=== PATIENT | female | born 1960 | race Caucasian/White ===

== ENCOUNTER 2017-08-25 17:33 | Emergency (ER) | payer OTHER ==
[~2017-08-25] VITALS: Ht 165.1 cm; Wt 74.8 kg
[~2017-08-25 17:33] MED LIST: ANCEF 1GM1 GM/50 M2 IV; ASPIR 8181 MG PO; ASPIRIN PO; ASPIRIN325; ASPIRIN325 PO; ATORVASTATIN CA20 MG; ATORVASTATIN CA40 MG PO; BACTRIM 400-801 EACH PO; BACTRIM DS TAB1 EACH PO; BENTYL 20 MG TA20 M1 PO; BETAMETHASONE D45 G1 TP; CARAFATE 1 GM TA1 G1 PO; CARAFATE 1 GM TA1 GM PO; CEFUROXIME250 MG PO; CILOSTAZOL 100100 M1 PO; CIPRO250 M1 PO; CIPROFLOXACIN500 M1 PO; CIPROFLOXIN HC2.5 M1 OPHTHALMIC; COUMADIN 5 MG TA5 M1 PO; COZAAR 25 MG TA25 M2 PO; COZAAR 25 MG TA25 MG PO; DIABETA 5MG TABL5 MG PO; DUONEB 2.5-0.5 M3 ML INH; ELIQUIS5 MG PO; ENOXAPARIN60 MG/0.1 SUBQ; FENOFIBRATE134 MG PO; FENOFIBRATE160 MG PO; FEROSUL220 MG/5 M PO; FLAGYL500 MG PO; FURADANTIN25 MG/5 ML PO; GEMFIBROZIL 60600 MG PO; GLIPIZIDE 10 MG10 MG PO; GLIPIZIDE ER10 MG PO; GLUCOPHAGE PO; GLUCOPHAGE1000 MG PO; GLUCOPHAGE500 MG PO; GLUCOTROL10 MG PO; GLUCOTROL5 MG PO; GLUMETZA500; GLYBURID-METFO1 EAC3 PO; GLYBURIDE 5 MG T5 M1; GLYBURIDE 5 MG T5 M1 PO; GLYBURIDE 5 MG T5 MG PO; HYDROCODONE-AP1 EAC6 PO; HYDROXYZINE HCL25 M1 PO; HYOSCYAMINE0.375 M2 PO; IMDUR 60 MG TAB60 M1 PO; IMDUR 60 MG TAB60 MG PO; IRON; IRON325 PO; ISOSORBIDE MONO60 M1 PO; JANUVIA100 MG PO; LANTUS SUBQ; LASIX 20 MG TAB20 MG PO; LASIX 40 MG TAB40 M2 PO; LEVAQUIN 500 M500 M2; LEVAQUIN 500 M500 M2 PO; LEVAQUIN 500 M500 M8 PO; LEVOTHROID100 MC1 PO; LIPITOR 20 MG T20 M1 PO; LIPITOR 40 MG T40 M1 PO; LIPITOR40 MG PO; LISINOPRIL2.5 MG PO; LISINOPRIL5 MG PO; LOPRESSOR 50 MG50 M1 PO; LOPRESSOR25 PO; LOVASTAT20 PO; MEDROLDOSEPACK PO; METFORMIN HCL500 MG PO; MINOCIN100 MG PO; MIRALAX255 GM PO; NEURONTIN 300300 M1 PO; NEURONTIN600 MG PO; NEURONTIN800 MG PO; NITROGLYCERIN0.4 MG SUBLING; NITROQUICK0.4 MG; NITROSTAT0.4 MG PO; NORCO 5-325 TA1 EACH PO; NOVOLIN N100 UNIT/1 SQ; NOVOLOG100 UNIT/1; NOVOLOG100 UNIT/1 SUBQ; OMEPRAZOLE40 MG PO; PERCOCET 5-3251 EACH PO; PLAVIX 75 MG TA75 M1 PO; PLAVIX 75 MG TA75 MG PO; POLYETHYLENE GL17 GM PO; POTASSIUM20 PO; PRADAXA150 MG PO; PREDNISONE 10 M10 MG PO; PREDNISONE 20 M20 M1 PO; PRILOSEC40 MG PO; PRINIVIL5 MG PO; PROTONIX40 M1 PO; PROTONIX40 M2 PO; RANITIDINE 150150 M1 PO; SERTRALINE HCL100 MG PO; SERTRALINE HCL50 MG PO; SIMVASTATIN40 MG PO; SYNTHROID100 MCG PO; SYNTHROID125 MCG PO; SYNTHROID150 MCG PO; SYNTHROID300 MCG PO; TOPROL XL50 MG PO; TRAMADOL 50 MG50 MG PO; TRIAMCINOLONE A80 G2 TOP; TRINATE TABLET1 TAB PO; ULTRAM 50MG TAB50 MG PO; VENTOLIN HFA INH8 GM IH; VICODIN 5-5001 EACH PO; VITAMIN B-121000 MCG PO; ZANTAC 150MG T150 M1 PO; ZOCOR40 MG PO; ZOFRAN4 MG PO; ZOLOFT 50 MG TA50 M1 PO; [UNRECOGNIZED DRUG - OTHER] PO
[2017-08-25 18:04] LABS: BE -7.9 mmol/L (-2 to +3); HCO3 19.2 mmol/L (22.0-26.0); PO2 102.6 mmHg (75.0-100.0)
[2017-08-25 18:05] LABS: pH 7.249 (7.340-7.450)
[2017-08-25 18:39] LABS: HEMATOCRIT 44.5 % (37.0-47.0); HEMOGLOBIN 14.8 gm/dL (12.0-15.0); MCH 32.8 pg (26.0-34.0); MCHC 33.3 g/dL (28.0-37.0); MCV 98.6 fL (80.0-100.0); MPV 8.2 fl. (7.2-11.1); NUCLEATED RBCS 0 /100WBC; PLATELET COUNT* 146 thou/uL (150-400); RBC 4.51 mil/uL (4.20-5.00); RDW-CV 16.1 % (10.5-14.5); WBC 15.2 thou/uL (4.0-11.0)
[2017-08-25 18:42] LABS: APTT 21.2 Seconds (25.0-31.3); INR 1.1
[2017-08-25 18:43] LABS: CALCIUM 8.2 mg/dL (8.5-10.1); CREATININE 1.6 mg/dL (0.6-1.3); POTASSIUM 4.4 mmol/L (3.5-5.1)
[2017-08-25 18:54] LABS: ALBUMIN 3.7 g/dL (3.4-5.0); CK-MB MASS 6.3 ng/mL (<0.5-3.6); TOTAL BILIRUBIN 0.7 mg/dL (<0.1-1.0); TOTAL PROTEIN 7.6 g/dL (6.4-8.2); TROPONIN-I LEVEL 0.15 ng/mL (<0.06)
[2017-08-25 19:17] LABS: ABSOLUTE LYMPHOCYTES 1.2 thou/uL (0.8-5.3); ABSOLUTE MONOCYTES 0.5 thou/uL (0.0-1.2); ABSOLUTE NEUTROPHILS 13.5 thou/uL (1.6-8.1)
[2017-08-25 19:18] LABS: CLUMPED PLTS RARE; PLATELET ESTIMATE ADEQUATE
[2017-08-25 20:21] VITALS: BP 207/85
[2017-08-25 20:32] LABS: POC CA IONIZED 4.1 mg/dL (4.5-5.3); POC CREATININE 1.3 mg/dL (0.6-1.3); POC HEMOGLOBIN 16.3 g/dL (12.0-17.0); POC POTASSIUM 4.5 mmol/L (3.5-4.9)
--- NOTE | 2017-08-26 17:24 | EKG ---
[place] [address] ELECTROCARDIOGRAM REPORT Name: LIANG CASTAÑEDA Room: [facility]#: [id number] Admission: 08/25/17 Attend Phys: Discharge: 08/25/17 Date of : 56 Report #: [id number] THIS REPORT FOR: //name// [facility] ED Test Date: 2017-08-25 Test Time: 17:51:39 Pat Name: LIANG CASTAÑEDA Department: Room: Gender: F Manager Mortgage: PAULETTE CUEVAS : 1960 Requested By: Julissa Camarillo Order Number: [id number] MD: Marvin Swartz Measurements Intervals [place] Rate: 107 P: 71 DC: 149 QRS: 80 QRSD: 91 T: -87 QT: 379 QTc: 506 Interpretive Statements Sinus tachycardia Anterior infarct, old Nonspecific T abnormalities, inferior leads Prolonged QT interval Baseline wander in lead(s) V2 Compared to ECG 12/11/2016 23:43:28 T-wave abnormality now present Prolonged QT interval now present Myocardial infarct finding still present Electronically Signed On 08-26-2017 17:23:57 STAFF RADIOGRAPHER by Marvin Swartz [email or web address] <ELECTRONICALLY SIGNED> By: Marvin Swartz MD, [facility] 08/26/17 1723 1751 1751 Marvin Swartz MD, [facility] /EPI
== END 2017-08-25 20:22 | disposition short-term general hospital (02) ==
LOC: M.ERS 17:33
PROVIDERS: Personal Emergency Response Attendant
DX: G93.6 Cerebral edema (principal); R41.82 Altered mental status, unspecified; J44.9 Chronic obstructive pulmonary disease, unspecified; I25.10 Atherosclerotic heart disease of native coronary artery without angina pectoris; E03.9 Hypothyroidism, unspecified; E11.621 Type 2 diabetes mellitus with foot ulcer; L97.509 Non-pressure chronic ulcer of other part of unspecified foot with unspecified severity; Z91.041 Radiographic dye allergy status; Z88.5 Allergy status to narcotic agent; Z88.0 Allergy status to penicillin

== ENCOUNTER 2017-09-26 12:31 | Inpatient (IN) | payer OTHER ==
[~2017-09-26] VITALS: Ht 165.1 cm; Wt 60.3 kg
[2017-09-26 12:50] VITALS: BP 151/63
[2017-09-26 13:33] LABS: ABSOLUTE BASOPHILS 0.1 thou/uL (0.0-0.2); ABSOLUTE EOSINOPHILS 0.1 thou/uL (0.0-0.7); ABSOLUTE LYMPHOCYTES 1.5 thou/uL (0.8-5.3); ABSOLUTE MONOCYTES 0.7 thou/uL (0.0-1.2); ABSOLUTE NEUTROPHILS 6.6 thou/uL (1.6-8.1); BASOPHILS 1.2 %; EOSINOPHILS 1.5 %; HEMATOCRIT 32.2 % (37.0-47.0); HEMOGLOBIN 10.6 gm/dL (12.0-15.0); LYMPHOCYTES 16.3 %; MCH 32.5 pg (26.0-34.0); MCV 98.3 fL (80.0-100.0); MONOCYTES 7.8 %; MPV 7.1 fl. (7.2-11.1); NUCLEATED RBCS 0 /100WBC; PLATELET COUNT* 337 thou/uL (150-400); POLYS 73.2 %; RBC 3.28 mil/uL (4.20-5.00); RDW-CV 17.9 % (10.5-14.5)
[2017-09-26 13:40] LABS: CALCIUM 8.6 mg/dL (8.5-10.1); CREATININE 1.4 mg/dL (0.6-1.3); POTASSIUM 4.5 mmol/L (3.5-5.1)
[2017-09-26 13:44] LABS: ALBUMIN 3.5 g/dL (3.4-5.0); TOTAL BILIRUBIN 0.2 mg/dL (<0.1-1.0); TOTAL PROTEIN 7.1 g/dL (6.4-8.2)
[2017-09-26 21:10] VITALS: BP 168/62
[2017-09-27 04:37] VITALS: BP 176/66
--- NOTE | 2017-09-27 04:51 | NUR ---
END SHIFT: PT RESTED WELL. PAIN WELL CONTROLLED WITH PAIN MEDICATION. IVF INFUSING WITHOUT DIFFICUTLY. PEDAL PULSE DOPPLED ON RIGHT SIDE. SR ON MONITOR. CURRRENTLY ON 3L NC. SATS WILL DROP WHEN OFF OXYGEN INTO THE 80'S. CURRENTLY SATING 94% ON 3L NC. VSS. ASSESSMENT UNCHANGED. CALL LIGHT IN REACH. SAFETY PRECAUTIONS IN PLACE. WILL CONT TO MONITOR.
[2017-09-27 08:00] VITALS: BP 151/54
[2017-09-27 08:44] LABS: CALCIUM 8.7 mg/dL (8.5-10.1); CREATININE 1.2 mg/dL (0.6-1.3)
--- NOTE | 2017-09-27 09:24 | NUR ---
RECEIVED REPORT AND ASSUMED CARE AT 0730. VSS. PT DENIES ANY COMPLAINTS OF PAIN.ASSESSMENT COMPLETED CHARTED. DISCUSSED PLAN OF CARE WITH PT, VERBALIZED UNDERSTANDING. NEW IV STARTED L AC, SL. PT ON 3L NC, WITH WITH ASSIST IN ROOM. CTA RUNOFF ORDERED. BED IN LOWEST POSITION, CALL LIGHT WITHIN REACH, BED ALARM ON. WILL CONTINUE TO MONITOR FOR REMAINDER OF SHIFT
[2017-09-27 11:04] VITALS: BP 167/58
[2017-09-27 13:31] LABS: APTT 28.1 Seconds (25.0-31.3); PROTIME 9.8 Seconds (9.20-11.50)
--- NOTE | 2017-09-27 13:51 | NUR ---
CM ASSESSMENT: Pt is A&O. Resides at home with her , dtr and 2 grandkids. Independent with bathing and grooming. Pt requires assistance with ADLs, Pt that she is easily worn out when doing things around the house. Pt does not wear home o2. Pt has a walker, commode, and wc. Pt is current with [facility], CM will fax resumption orders at [place]. Pt states that she was here in the ER approx 4 weeks ago, at which time she was transferred to [facility] from there to home with . Pt's goal is to return home after this hospital stay with . Surgery following.
[2017-09-27 16:04] VITALS: BP 145/42
--- NOTE | 2017-09-27 16:29 | EKG ---
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: MIR : 1960 Requested By: Beata Case Order Number: [id number] MD: Cisco Mcconnell Measurements Intervals [place] Rate: 99 P: [place]: QRS: 30 QRSD: 84 T: 51 QT: 385 QTc: 495 Interpretive Statements sinus rhythm Probable septal infarct, recent Compared to ECG 08/25/2017 17:51:39 Sinus tachycardia no longer present T-wave abnormality no longer present Prolonged QT interval no longer present Myocardial infarct finding still present Electronically Signed On 09-27-2017 16:28:53 CDT by Cisco Mcconnell [email or web address] <ELECTRONICALLY SIGNED> By: Cisco Mcconnell MD, FAC 09/27/17 1628 1450 1450 Cisco Mcconnell MD, [facility] /EPI
--- NOTE | 2017-09-27 17:02 | 2DMMODE ---
[place] [address] 2 D/M-MODE ECHOCARDIOGRAM Name: LIANG CASTAÑEDA Room: [address] IN [facility]#: [id number] Admission: 09/26/17 Attend Phys: Jamie Rosario Discharge: Date of : 56 Date of Service: 09/27/17 1701 Report #: [id number] THIS REPORT FOR: //name// APPROVED REPORT Study performed: 09/27/2017 15:01:59 EXAM: Comprehensive 2D, Doppler, and color-flow Echocardiogram Patient Location: In-Patient Room #: [facility] BSA: 1.66 HR: 98 bpm BP: 145/42 mmHg Other Information Study Quality: Good Indications Pre-Op 2D Dimensions LVEF(%): 55.98 (>50%) IVSd: 10.75 (7-11mm) LVOT Diam: 20.71 (18-24mm) LVDd: 43.68 mm PWd: 10.26 (7-11mm) Ascending Ao: 26.24 (22-36mm) LVDs: 31.01 (25-40mm) Aortic Root: 24.29 mm Gunter's LVEF: 55.98 % Volumes Left Atrial Volume (Systole) LA ESV Index: 24.30 mL/m2 Aortic Valve AoV Peak Saran.: 1.69 m/s AO Peak Gr.: 11.38 mmHg LVOT Max P.56 mmHg AO Mean Gr.: 5.95 mmHg LVOT Mean P.67 mmHg LVOT Max V: 1.18 m/s AO V2 VTI: 29.80 cm LVOT Mean V: 0.75 m/s SALLY (VTI): 2.84 cm2 LVOT V1 VTI: 25.12 cm Mitral Valve E/A Ratio: 0.62 MV Decel. Time: 116.03 [place] [address] 2 D/M-MODE ECHOCARDIOGRAM Name: LIANG CASTAÑEDA Room: [address] IN .#: [id number] Admission: 09/26/17 Attend Phys: Jamie Rosario Discharge: Date of : 56 Date of Service: 09/27/17 1701 Report #: [id number] MV E Max Saran.: 0.84 m/s MV PHT: 33.65 ms MVA (PHT): 6.54 cm2 TDI E/Lateral E': 12.00 E/Medial E': 12.00 Medial E' Saran.: 0.07 m/s Lateral E' Saran.: 0.07 m/s Pulmonary Valve PV Peak Saran.: 1.12 m/s PV Peak Gr.: 5.02 mmHg Tricuspid Valve TR Peak Gr.: 27.62 mmHg RVSP: 32.62 mmHg Left Ventricle The left ventricle is normal size. There is normal LV segmental wall motion. Mild to moderate concentric left ventricular hypertrophy. Left ventricular systolic function is normal. LVEF is 65-70%. Grade I - abnormal relaxation pattern. Right Ventricle The right ventricle is normal size. The right ventricular systolic function is normal. Atria The left atrium size is normal. The right atrium size is normal. Aortic Valve Aortic valve is mildly calcified. No aortic regurgitation is present. There is no aortic valvular stenosis. Mitral Valve The mitral valve is normal in structure. There is no mitral valve regurgitation noted. No evidence of mitral valve stenosis. Tricuspid Valve The tricuspid valve is normal in structure. Mild tricuspid regurgitation. The RVSP is __29.3 mmHg. Pulmonic Valve The pulmonary valve is normal in structure. There is no pulmonic valvular regurgitation[place] [address] 2 D/M-MODE ECHOCARDIOGRAM Name: LIANG CASTAÑEDA Room: [address] IN .#: [id number] Admission: 09/26/17 Attend Phys: Jamie Rosario Discharge: Date of : 56 Date of Service: 09/27/17 1701 Report #: [id number] The aortic root is normal in size. IVC is normal in size and collapses with >50% inspiration Pericardium There is no pericardial effusion. <Conclusion> The left ventricle is normal size. Mild to moderate concentric left ventricular hypertrophy. Left ventricular systolic function is normal. LVEF is 65-70%. Grade I - abnormal relaxation pattern. Aortic valve is mildly calcified. Mild tricuspid regurgitation. The RVSP is __29.3 mmHg. IVC is normal in size and collapses with >50% inspiration <ELECTRONICALLY SIGNED> By: Vernon Oates MD, FACC 09/27/171700 00 00 Vernon Oates MD, FACC /INF
--- NOTE | 2017-09-27 17:54 | NUR ---
PT RESTING IN ROOM. ON 3L NC. VSS. CARDIAC MONITORIN IN PLACE. DISCUSSED PLAN OF CARE WITH PT. VERBALIZED UNDERSTANDING. PT COMPLAINS OF CONTINUED R LEG PAIN. PRN PAIN MEDICATION AMINISTERED WHICH IS REPORTED BY PT TO HELP SOME, DOES NOT WANT ANYTHING STRONGER. PT HAS STRESS TEST SCHEDULED FOR 09/28/17. WILL NEED TO BE NPO AT MIDNIGHT. AWAITING CARDIOVASCULAR CLEARANCE FOR VASCULAR PROCEEDURE. DR AGUILERA TO REVIEW CT, POSSIBLE PLAN FOR SURGERY 09/28/17. PT RECEIVING HEAPARIN DRIP, LABS SCHEDULED FOR REDRAW 09/27 2029. PT UP WITH ASSIST [facility]CS. CALL LIGHT WITHIN REACH, BED IN LOWEST POSITION, BED ALARM ON. WILL CONTINUE TO MONITOR FOR REMAINDER OF THE SHIFT.
[2017-09-27 19:50] VITALS: BP 160/61
[2017-09-28 00:01] VITALS: BP 165/58
--- NOTE | 2017-09-28 04:38 | NUR ---
END SHIFT: PT RESTED WELL. PAIN IN RIGHT LEG RELIEVED BY PAIN MEDICATION. ABLE TO WALK ON LEG WITHOUT DIFFICULTY. SR ON MONITOR. SATS DROP WHEN NOT ON O2. REQUIRES 2-3L TO STAY ABOVE 91%. HEPARIN GTT REQUIRED BOLUS AND INCREASE. TOLERATING WELL. ASSESSMENT UNCHANGED. VSS. RT SUGGESTING OVERNIGHT CAPNOGRAPHY FOR PT. WILL ADDRESS WITH ONCOMING RN FOR ORDER FROM MD. SAFETY PRECAUTIONS IN PLACE. CALL LIGHT IN REACH. PERFORMED HOURLY ROUNDING. WILL CONT TO MONITOR.
[2017-09-28 04:55] LABS: ABSOLUTE BASOPHILS 0.2 thou/uL (0.0-0.2); ABSOLUTE LYMPHOCYTES 2.3 thou/uL (0.8-5.3); ABSOLUTE MONOCYTES 0.8 thou/uL (0.0-1.2); ABSOLUTE NEUTROPHILS 9.4 thou/uL (1.6-8.1); BASOPHILS 1.4 %; EOSINOPHILS 0.1 %; HEMATOCRIT 29.5 % (37.0-47.0); HEMOGLOBIN 9.8 gm/dL (12.0-15.0); LYMPHOCYTES 17.8 %; MCH 31.9 pg (26.0-34.0); MCV 96.6 fL (80.0-100.0); MONOCYTES 6.5 %; MPV 7.1 fl. (7.2-11.1); NUCLEATED RBCS 0 /100WBC; PLATELET COUNT* 310 thou/uL (150-400); POLYS 74.2 %; RBC 3.06 mil/uL (4.20-5.00); RDW-CV 17.6 % (10.5-14.5); WBC 12.6 thou/uL (4.0-11.0)
[2017-09-28 05:02] VITALS: BP 166/65
[2017-09-28 07:25] VITALS: BP 177/63
--- NOTE | 2017-09-28 08:00 | NUR ---
RECEIVED REPORT. ASSUMED CARE OF PT AT 0730. VSS. CARDIAC MONITORING IN PLACE SR. AM ASSESSMENT AND VITALS COMPLETED CHARTED. PT ALERT AND ORIENTED. PT ON 3L PER NC WITH O2 SAT AT 98% IVF INFUSING PER ORDERS. HEPARIN GTT INFUSING. PT REPORTS PAIN TO RIGHT LE 7/10 PRN FENTANYL GIVEN. PT NPO FOR STRESS TEST AND POSSIBLE SURGERY TODAY. PT INFORMED OF PLAN OF CARE AND COMMUNICATES UNDERSTANDING. CALL LIGHT IS WITHIN REACH. WILL CONTINUE TO MONITOR FOR DURAITON OF SHFIT.
[2017-09-28 12:30] VITALS: BP 188/72
--- NOTE | 2017-09-28 14:12 | NUR ---
I HAVE REVIEWED STUDENT'S CHARTING.
[2017-09-28 15:24] VITALS: BP 169/65
--- NOTE | 2017-09-28 16:22 | EXE ---
[place] [address] STRESS ECHOCARDIOGRAM Name: LIANG CASTAÑEDA Room: [address] IN [facility]#: [id number] Admission: 09/26/17 Attend Phys: Jamie Rosario Discharge: Date of : 56 Date of Service: 09/28/17 1622 Report #: [id number] THIS REPORT FOR: //name// APPROVED REPORT Study performed: 09/28/2017 11:30:01 Exam: Dobutamine Stress Echo Indication: CAD , Pre-Operative CV evaluation Patient Location: In-Patient Stress Nurse: Selma Lin RN Room #: 214 Supervising Physician: Cisco Mcconnell MD Ht: 5 ft 5 in HR: 95 bpm BP: 179/56 mmHg Medical History Cardiac Risk Factors: Hyperlipidemia, HTN, DM Procedure The patient underwent a Pharmacological Stress Test using Dobutamine. Blood pressure, heart rate, and EKG were monitored. An Echocardiogram was performed by senior controls technician in four stages in quad fashion. At peak stress, four selected images were obtained and placed side by side with resting images for comparison. Stress Test Details Stress Test: Pharmacological Stress Test using Dobutamine. HR Resting HR: 95 bpm Max Heart Rate (APMHR): 161 bpm Max HR Achieved: 146 bpm Target HR (85% APMHR): 136 bpm % of APMHR: 90 Recovery HR: 102 bpm HR response to stress: Normal HR response to stress BP Resting BP: 179/56 mmHg Max BP: 253/48 mmHg Recovery BP: 190/46 mmHg ECG Resting ECG: Sinus Rhythm, nonspecific ST-T abnormalities Stress ECG: Sinus Rhythm, nons[place] [address] STRESS ECHOCARDIOGRAM Name: LIANG CASTAÑEDA Room: [address]#: [id number] Admission: 09/26/17 Attend Phys: Jamie Rosario Discharge: Date of : 56 Date of Service: 09/28/17 1622 Report #: [id number] ST Change: Upsloping ST depression Maximum ST Deviation: 0.5 mm Recovery ECG: Sinus Rhythm, nonspecific ST-T abnormalities Recovery ST Change: Upsloping ST depression Recovery ST Deviation: 0.5 mm Clinical Reason for Termination: Completed protocol Pre-Stress Echo The resting Echocardiogram showed normal left ventricular contractility with an estimated Ejection Fraction of about 55-60%. Post-Stress Echo The stress Echocardiogram showed normal left ventricular contractility with an estimated Ejection Fraction of about >70%. Conclusion Clinical Response: Non-ischemic Stress ECG Response: Indeterminant Stress Echo Images: Non-ischemic low risk stress echo for future cardiac events Other Information Study Quality: Good <Conclusion> low risk stress echo for future cardiac events <ELECTRONICALLY SIGNED> By: Cisco Mcconnell MD, FACC 09/28/17 162 162 21 Cisco Mcconnell MD, FACC /INF
--- NOTE | 2017-09-28 18:10 | NUR ---
VSS. CARDIAC MONITORING IN PLACE WITH NO CHANGES THIS SHIFT. PT TITRATED TO RA DURING THIS SHIFT. IVF INFUSING PER ORDERS. HEPARIN GTT INFUSING. PT'S PAIN WELL MANAGED THIS SHIFT. PT COMPLETED STRESS TEST. PT IS UP WITH STAND BY ASSISTANCE TO BATHROOM. PT INFORMED OF PLAN OF CARE. CALL LIGHT IS WITHIN REACH. WILL CONTINUE TO MOTNIOR FOR DURATION OF SHIFT.
[2017-09-28 20:00] VITALS: BP 207/83
[2017-09-29] VITALS (8 sets, daily range): BP systolic 152–206; BP diastolic 48–98
--- NOTE | 2017-09-29 02:43 | NUR ---
RECIEVED REPORT AND ASSUMED CARE OF PATIENT AT 1930. PRINCIPAL SYSTEM SOFTWARE ENGINEER IN PLACE TRACING SR. ASSESSMENT AND VITALS COMPLETED CHARTED, BLOOD PRESSURE ELEVATED- 207/83. PHYSICIAN NOTIFIED AND ORDERS OBTAINED FOR PRN HYDRALAZINE. HYDRALAZINE ADMINISTERED WITH IMPROVEMENT, BP RECHECK WAS 162/66. PATIENT HAS C/O PAIN IN RIGHT LEG, PAIN MEDICATION ADMINISTERED WITH PARTIAL RELIEF. PATIENT ENCOURAGED TO REPOSITION FOR COMFORT. GOAL IS EFFECTIVE PAIN MANAGEMENT AND CONTINUED BLOOD PRESSURE CONTROL. CALL LIGHT WITHIN REACH
--- NOTE | 2017-09-29 04:38 | NUR ---
PATIENT PARTIALLY PROGRESSING TOWARDS GOALS: PAIN HAS BEEN PARTIALLY MANAGED WITH PRN MEDICATION AND REPOSITION/RELAXATION TECHNIQUES. PATIENT REMAINS ON HEPARIN GTT WITH THERAPEUTIC PTT. HOURLY ROUNDING OBSERVED. CALL LIGHT WITHIN REACH.
[2017-09-29 05:33] LABS: HEMATOCRIT 30.7 % (37.0-47.0); HEMOGLOBIN 10.2 gm/dL (12.0-15.0); MCH 32.4 pg (26.0-34.0); MCHC 33.2 g/dL (28.0-37.0); MCV 97.8 fL (80.0-100.0); MPV 7.4 fl. (7.2-11.1); RBC 3.13 mil/uL (4.20-5.00); RDW-CV 17.4 % (10.5-14.5); WBC 10.2 thou/uL (4.0-11.0)
--- NOTE | 2017-09-29 10:24 | NUR ---
ASSUMED CARE OF PT THIS AM AROUND 0715- SENIOR RESERVOIR ENGINEER IN PLACE ORDERED, TRAICNG ST THIS AM- UPON ASSESSMENT PT NOTED TO BE RESTING IN BED, EYES CLOSED BUT EASILY ARROUSABLE- PT A&O X4- CONTINENT OF BOWEL AND BLADDER- ASSIST X1 WITH TRANSFERS NOTED- LCTA, RESP EVEN AND UN-LABORED- VSS, O2 SAT 96% ON RA- IV NOTED TO RIGHT WRIST WITH IVF AND HEPARIN INFUSING PRESCIBED-LEFT AC IV NOTED INTACT AND SL, IV ABT GIVEN PRESCIBED WITH NO ADVERSE REACTIONS TO NOTE- BS ACHS PRESCIBED- LEA, MASONRY CONTRACTOR ADMINISTRATOR WITH CARIDIOLOGY STATES THAT PT WILL BE ABLE TO BE CLEARED FOR SUGERY IN FUTURE, WITH RISKS- EMMANUEL WITH CARDIOLOGY CONTACTED TO CLEARIFY DIET IN R/T NO STATUS THIS AM, AND VOICES THAT PT IS ABLE TO EAT- JALEESA BENITEZ STATES THAT MAY NEED TO SCHEDULE OP AT ANOTHER HOSPITAL DEPENDING ON FACTORS- PT C/O PAIN X1 THIS AM TO BLE, PRN FENT GIVEN AT 0943- PT REPORTS MEDICATION TO DONAVAN EFFECTIVE-[facility] MA[facility] CAMPUST X-RAY COMPLETED THIS AM ORDERED FOR FOLLOW UP TO PNEUMONIA- RESULTS SHOW IMPROVEMENT AND INILTRATE, NO NEW PROCESS NOTED- ABDOMEN SOFT/ROUND/NON-TENER, BS X4 QUADS ACTIVE- LAST BM REPORTED X2 DAYS AGO- BS PRESCIBED WITH PO AND SSI PRESCIBED- CALL LIGHT AND PERSONAL BELONGINGS WITH IN REACH- HOURLY ROUNDS IN PLACE R/T SAFETY/NEEDS- ALL NEEDS MET AT THIS TIME-WCTM
--- NOTE | 2017-09-29 15:03 | NUR ---
Plan dc to home tomorrow with HH, CM will fax resumption orders to [facility]
--- NOTE | 2017-09-29 18:17 | NUR ---
PT CURRENTLY RESTING IN BED, WATCHING TV- CLINICAL RESEARCH TECHNICIAN IN PLACE ORDERED, TRACING ST- IV TO RIGHT WRIST INTACT, IVF ALONG WITH HEPARIN INFUSING PRESCIBED- APPT @ 1230 NOTED AT 53.2 WITH NO CHANGE NEEDED IN DOSEING- NEXT CHECK SCHEDULED AT 1830- FENT PRN THIS SHIFT PER PT REQUEST, PT REPORTS MEDICATION TO BE EFFECTIVE- PRN ZOFRAN GIVEN X1 THIS SHIFT AT 1730, FOR EMESIS X1- PT REPORTS MEDICATIONS TO BE EFFECTIVE- BP AT 1116 NOTED AT 206/79, PRN HYDRALAZINE GIVEN AT 1121, RECHECK AT 1225 NOTED TO DONAVAN IMPROVED AT 142/60- BS PRESCRIBED, SSI PRESCIBED, FAIR PO INTAKE NOTED WITH MEALS- D/C PENDING VASCULAR INPUT FOR PLANS FOR FOLLOW UP- CALL LIGHT AND PERSONAL BELONGINGS WITH IN REACH- ALL NEEDS MET AT THIS TIME-WC
[2017-09-30] VITALS (7 sets, daily range): BP systolic 149–201; BP diastolic 56–98
--- NOTE | 2017-09-30 03:51 | NUR ---
PATIENT PARTIALLY PROGRESSING TOWARDS GOALS: PAIN PARTIALLY MANAGED WITH PRN MEDICATION, HOWEVER, PAIN HAS NOT BEEN BELOW A "5" ON PAIN SCALE. PATIENT ENCOURAGED TO REPOSITION FOR COMFORT. PATIENT REMAINS ON HEPARIN GTT AT 12.69 WITH THERAPEUTIC PTT. HOURLY ROUNDING OBSERVED. CALL LIGHT WITHIN REACH
[2017-09-30 06:15] LABS: HEMATOCRIT 30.2 % (37.0-47.0); HEMOGLOBIN 9.7 gm/dL (12.0-15.0); MCH 31.6 pg (26.0-34.0); MCHC 32.1 g/dL (28.0-37.0); MCV 98.3 fL (80.0-100.0); MPV 7.4 fl. (7.2-11.1); RBC 3.07 mil/uL (4.20-5.00); RDW-CV 17.6 % (10.5-14.5); WBC 7.6 thou/uL (4.0-11.0)
--- NOTE | 2017-09-30 07:45 | NUR ---
ASSUMED CARE OF PT ASSESSED AND DOCUMENTED. PT ON CARDIAC MONITER TRACING SR HR 86. PT IS A&O WITH C/O R LEG PAIN. PT REC PAIN MED PRIOR TO SHIFT CHANGE. BED IS IN LOW POSTION CALL LIGHT IS IN TREACH. WM.
--- NOTE | 2017-09-30 13:52 | NUR ---
Pt to dc home today, resumption orders faxed to [facility]. Family to provide dc transportation.
[2017-09-30] MEDS ORDERED: PLAVIX 75 MG TA75 M1 PO (16:24)
[2017-09-30] MEDS ORDERED: HYDRALAZINE 10M10 MG PO (16:36)
[2017-09-30] MEDS ORDERED: LEVAQUIN 500 M500 M2 PO (16:56)
[2017-09-30] MEDS ORDERED: DURAGESIC1 EACH PO (17:01)
--- NOTE | 2017-09-30 17:54 | NUR ---
PT D/C'D TO HOME. ALL CONSULTS OK WITH D/C. EDUCATION GIVEN RE FOLLOW-UPS, MEDICATIONS, AND DRS ORDERS. SCRIPTS GIVEN. D/C'D IV AND CARDIAC MONITER. ALL BELONGINGS PACKED UP ANDLEFT WITH PT ACCOMPANIED BY STAFF AND FAMILY.
== END 2017-09-30 18:00 | disposition home health service (06) | DRG 177 ==
LOC: M.ERS 12:31 → M.TBA-ER 16:35 → M.2W 16:35
PROVIDERS: Emergency Medicine Emergency Medical Services; Physician Assistant; Registered Nurse; ADMIT Internal Medicine
DX: J15.6 Pneumonia due to other Gram-negative bacteria (principal); J96.01 Acute respiratory failure with hypoxia; I74.3 Embolism and thrombosis of arteries of the lower extremities; E11.51 Type 2 diabetes mellitus with diabetic peripheral angiopathy without gangrene; N18.9 Chronic kidney disease, unspecified; E03.9 Hypothyroidism, unspecified; E11.22 Type 2 diabetes mellitus with diabetic chronic kidney disease; E78.5 Hyperlipidemia, unspecified; I65.21 Occlusion and stenosis of right carotid artery; J43.9 Emphysema, unspecified; I25.10 Atherosclerotic heart disease of native coronary artery without angina pectoris; D64.9 Anemia, unspecified; I25.2 Old myocardial infarction; Z87.891 Personal history of nicotine dependence; Z88.0 Allergy status to penicillin; Z88.8 Allergy status to other drugs, medicaments and biological substances; Z91.041 Radiographic dye allergy status; Z79.899 Other long term (current) drug therapy; Z79.82 Long term (current) use of aspirin; Z86.718 Personal history of other venous thrombosis and embolism

== ENCOUNTER 2018-03-20 10:04 | Inpatient (IN) | payer OTHER ==
[~2018-03-20] VITALS: Ht 165.1 cm; Wt 58.1 kg
[~2018-03-20 10:04] MED LIST changes: +DURAGESIC1 EACH PO; +HYDRALAZINE 10M10 MG PO
[2018-03-20 10:05] VITALS: BP 180/31
[2018-03-20 10:40] LABS: ABSOLUTE BASOPHILS 0.1 thou/uL (0.0-0.2); ABSOLUTE EOSINOPHILS 0.1 thou/uL (0.0-0.7); ABSOLUTE LYMPHOCYTES 1.4 thou/uL (0.8-5.3); ABSOLUTE MONOCYTES 0.5 thou/uL (0.0-1.2); ABSOLUTE NEUTROPHILS 4.1 thou/uL (1.6-8.1); BASOPHILS 1.8 %; HEMOGLOBIN 11.4 gm/dL (12.0-15.0); LYMPHOCYTES 23.4 %; MCH 32.5 pg (26.0-34.0); MCHC 32.7 g/dL (28.0-37.0); MCV 99.5 fL (80.0-100.0); MONOCYTES 7.5 %; MPV 7.8 fl. (7.2-11.1); NUCLEATED RBCS 0 /100WBC; PLATELET COUNT* 204 thou/uL (150-400); POLYS 66.3 %; RBC 3.52 mil/uL (4.20-5.00); RDW-CV 21.3 % (10.5-14.5); WBC 6.1 thou/uL (4.0-11.0)
[2018-03-20 10:58] LABS: ANION GAP 6 mmol/L (7-16); BUN 27 mg/dL (7-18); CALCIUM 8.6 mg/dL (8.5-10.1); CHLORIDE 98 mmol/L (98-107); CO2 29 mmol/L (21-32); CREATININE 1.9 mg/dL (0.6-1.3); GLUCOSE 248 mg/dL (70-99); POTASSIUM 4.4 mmol/L (3.5-5.1); SODIUM 133 mmol/L (136-145)
[2018-03-20 11:07] LABS: ANISOCYTOSIS 2+
[2018-03-20 11:09] LABS: ALBUMIN 3.3 g/dL (3.4-5.0); ALKALINE PHOSPHATASE 70 U/L (46-116); SGOT 16 U/L (15-37); SGPT 15 U/L (30-65); TOTAL BILIRUBIN 0.2 mg/dL (<0.1-1.0); TOTAL PROTEIN 7.2 g/dL (6.4-8.2); TROPONIN-I LEVEL <0.06 ng/mL (<0.06)
[2018-03-20 12:31] LABS: URINE BILIRUBIN NEGATIVE (Negative); URINE BLOOD TRACE (Negative); URINE CLARITY CLEAR; URINE COLOR YELLOW; URINE GLUCOSE-RANDOM TRACE (Negative); URINE KETONES NEGATIVE (Negative); URINE PROTEIN NEGATIVE (Negative); URINE UROBILINOGEN 0.2 E.U./dl (0.2-1.0)
[2018-03-20 12:32] LABS: URINE LEUKOCYTES-REFLEX 2+ (Negative); URINE NITRITE-REFLEX POSITIVE (Negative)
[2018-03-20 12:38] LABS: BACTERIA-REFLEX >30 Many /HPF (None Seen); CASTS None Seen /LPF (None Seen); CRYSTALS None Seen /LPF (None Seen); MUCUS 0-3 Light strn/LPF (None Seen); SQUAMOUS 0-3 Few /LPF (0-3); URINE RBC 3-10 Few /HPF (0-2); URINE WBC-REFLEX 6-15 Few /HPF (0-5)
--- NOTE | 2018-03-20 14:37 | EKG ---
[place] [address] ELECTROCARDIOGRAM REPORT Name: LIANG CASTAÑEDA Room: [place] [address] ADM IN [facility]#: [id number] Admission: 03/20/18 Attend Phys: Betty Tijerina MD Discharge: Date of : 56 Report #: [id number] THIS REPORT FOR: //name// [facility] ED Test Date: 2018-03-20 Test Time: 10:33:51 Pat Name: LIANG CASTAÑEDA Department: Room: [facility] Gender: F Willower: ANDREW : 1960 Requested By: Tawana Kern Order Number: [id number] MD: Cisco Mcconnell Measurements Intervals [place] Rate: 74 P: 62 [place]: 167 QRS: 2 QRSD: 93 T: -38 QT: 403 QTc: 448 Interpretive Statements Sinus rhythm Probable left atrial enlargement Anterior infarct, old Compared to ECG 09/27/2017 14:50:45 No significant changes Electronically Signed On 03-20-2018 14:37:26 CDT by Cisco Mcconnell [email or web address] <ELECTRONICALLY SIGNED> By: Cisco Mcconnell MD, [facility] 03/20/18 1437 1033 1033 Cisco Mcconnell MD, [facility] /EPI
[2018-03-20 15:02] VITALS: BP 169/68
[2018-03-20 15:05] VITALS: BP 176/65
[2018-03-20 16:42] VITALS: BP 143/62
[2018-03-20 18:15] VITALS: BP 165/66
[2018-03-20 20:00] VITALS: BP 135/50
[2018-03-21] VITALS (7 sets, daily range): BP systolic 119–172; BP diastolic 46–79
[2018-03-21 05:46] LABS: HEMATOCRIT 31.8 % (37.0-47.0); HEMOGLOBIN 10.5 gm/dL (12.0-15.0); MCH 32.8 pg (26.0-34.0); MCHC 32.9 g/dL (28.0-37.0); MCV 99.8 fL (80.0-100.0); RBC 3.19 mil/uL (4.20-5.00); RDW-CV 20.6 % (10.5-14.5); WBC 6.3 thou/uL (4.0-11.0)
[2018-03-21 05:58] LABS: CALCIUM 7.3 mg/dL (8.5-10.1); CREATININE 1.6 mg/dL (0.6-1.3); MAGNESIUM 1.5 mg/dL (1.8-2.4)
[2018-03-22 04:00] VITALS: BP 155/76
[2018-03-22 08:00] VITALS: BP 149/71
[2018-03-22 12:00] VITALS: BP 199/78
[2018-03-22 21:10] VITALS: BP 175/68
[2018-03-23 07:30] VITALS: BP 181/80
[2018-03-23] MEDS ORDERED: CEFDINIR300 MG PO (13:21)
[2018-03-23] MEDS ORDERED: PROMETHAZINE12.5 M1 PO (13:22)
== END 2018-03-23 16:40 | disposition home health service (06) | DRG 682 ==
LOC: M.ERS 10:04 → M.TBA-ER 13:50 → M.2W 13:50 → M.ORTHSURG 03-22 13:24
PROVIDERS: Physician Assistant Surgical; ADMIT Internal Medicine
DX: N17.9 Acute kidney failure, unspecified (principal); G92 Toxic encephalopathy; N39.0 Urinary tract infection, site not specified; J44.9 Chronic obstructive pulmonary disease, unspecified; E03.9 Hypothyroidism, unspecified; I25.10 Atherosclerotic heart disease of native coronary artery without angina pectoris; F17.290 Nicotine dependence, other tobacco product, uncomplicated; E11.22 Type 2 diabetes mellitus with diabetic chronic kidney disease; S80.00XA Contusion of unspecified knee, initial encounter; D64.9 Anemia, unspecified; N18.3 Chronic kidney disease, stage 3 (moderate); E11.51 Type 2 diabetes mellitus with diabetic peripheral angiopathy without gangrene; I25.2 Old myocardial infarction; Z86.718 Personal history of other venous thrombosis and embolism; Z95.820 Peripheral vascular angioplasty status with implants and grafts; Z88.0 Allergy status to penicillin; Z88.6 Allergy status to analgesic agent; Z91.041 Radiographic dye allergy status; X58.XXXA Exposure to other specified factors, initial encounter; Y93.89 Activity, other specified; Y92.89 Other specified places as the place of occurrence of the external cause; Y99.8 Other external cause status

== ENCOUNTER 2018-03-29 11:22 | Inpatient (IN) | payer OTHER ==
[~2018-03-29] VITALS: Ht 165.1 cm; Wt 60.3 kg
[~2018-03-29 11:22] MED LIST changes: +CEFDINIR300 MG PO; +PROMETHAZINE12.5 M1 PO
[2018-03-29 11:24] VITALS: BP 169/50
[2018-03-29 11:42] LABS: ABSOLUTE BASOPHILS 0.1 thou/uL (0.0-0.2); ABSOLUTE EOSINOPHILS 0.2 thou/uL (0.0-0.7); ABSOLUTE LYMPHOCYTES 1.5 thou/uL (0.8-5.3); ABSOLUTE MONOCYTES 0.3 thou/uL (0.0-1.2); ABSOLUTE NEUTROPHILS 3.3 thou/uL (1.6-8.1); BASOPHILS 1.6 %; EOSINOPHILS 2.9 %; HEMATOCRIT 33.2 % (37.0-47.0); HEMOGLOBIN 10.9 gm/dL (12.0-15.0); MCH 33.1 pg (26.0-34.0); MCHC 32.8 g/dL (28.0-37.0); MCV 100.9 fL (80.0-100.0); MONOCYTES 6.1 %; MPV 8.3 fl. (7.2-11.1); NUCLEATED RBCS 0 /100WBC; PLATELET COUNT* 272 thou/uL (150-400); POLYS 61.4 %; RDW-CV 19.4 % (10.5-14.5); WBC 5.4 thou/uL (4.0-11.0)
[2018-03-29 11:54] LABS: ANION GAP 0 mmol/L (7-16); BUN 20 mg/dL (7-18); CALCIUM 8.6 mg/dL (8.5-10.1); CHLORIDE 100 mmol/L (98-107); CO2 30 mmol/L (21-32); CREATININE 1.8 mg/dL (0.6-1.3); GLUCOSE 141 mg/dL (70-99); POTASSIUM 5.4 mmol/L (3.5-5.1); SODIUM 130 mmol/L (136-145)
[2018-03-29 11:58] LABS: BE -0.6 mmol/L (-2 to +3); HCO3 25.5 mmol/L (22.0-26.0); PCO2 48.4 mmHg (35.0-45.0); PO2 63.8 mmHg (75.0-100.0)
[2018-03-29 12:05] LABS: ALBUMIN 3.2 g/dL (3.4-5.0); ALKALINE PHOSPHATASE 63 U/L (46-116); NT-PRO BRAIN NAT PEPTIDE 793 pg/mL (<300); SGOT 18 U/L (15-37); SGPT 12 U/L (30-65); TOTAL BILIRUBIN 0.2 mg/dL (<0.1-1.0); TOTAL PROTEIN 6.9 g/dL (6.4-8.2); TROPONIN-I LEVEL <0.06 ng/mL (<0.06)
[2018-03-29 16:00] VITALS: BP 113/50
[2018-03-29 16:15] VITALS: BP 150/54
--- NOTE | 2018-03-29 17:28 | EKG ---
[place] [address] ELECTROCARDIOGRAM REPORT Name: LIANG CASTAÑEDA Room: [address] ADM IN .R.#: [id number] Admission: 03/29/18 Attend Phys: Jaimie Moore Discharge: Date of : 56 Report #: [id number] THIS REPORT FOR: //name// [facility] ED Test Date: 2018-03-29 Test Time: 11:32:47 Pat Name: LIANG CASTAÑEDA Department: Room: [facility] Gender: F Component Engineer: Denise SNOW : 1960 Requested By: Alessandro Palomares Order Number: [id number] MD: Marvin Swartz Measurements Intervals [place] Rate: 74 P: 50 [place]: 167 QRS: 2 QRSD: 92 T: 55 QT: 396 QTc: 440 Interpretive Statements Sinus rhythm Probable left atrial enlargement Borderline low voltage, extremity leads Consider anterior infarct Compared to ECG 03/20/2018 10:33:51 No significant changes Electronically Signed On 03-29-2018 17:28:29 CDT by Marvin Swartz [email or web address] <ELECTRONICALLY SIGNED> By: Marvin Swartz MD, FAC 03/29/18 1728 1132 1132 Marvin Swartz MD, [facility] /EPI
[2018-03-29 20:00] VITALS: BP 147/45
[2018-03-30] VITALS: BP 171/56
[2018-03-30 04:00] VITALS: BP 148/61
[2018-03-30 07:45] VITALS: BP 141/55
[2018-03-30 11:37] VITALS: BP 117/42
[2018-03-30 15:30] VITALS: BP 131/48
[2018-03-30 19:20] VITALS: BP 161/60
[2018-03-31] VITALS: BP 138/52
[2018-03-31 04:00] VITALS: BP 177/67
[2018-03-31 10:08] LABS: ALBUMIN 3.2 g/dL (3.4-5.0); CALCIUM 8.5 mg/dL (8.5-10.1); CREATININE 1.8 mg/dL (0.6-1.3); POTASSIUM 4.2 mmol/L (3.5-5.1); TOTAL BILIRUBIN 0.3 mg/dL (<0.1-1.0); TOTAL PROTEIN 7.3 g/dL (6.4-8.2)
[2018-03-31 12:05] VITALS: BP 125/40
[2018-03-31 12:29] VITALS: BP 125/40
[2018-03-31] MEDS ORDERED: LEVAQUIN 500 M500 M2 PO (13:09)
[2018-03-31] MEDS ORDERED: PREDNISONE 10 M10 MG PO (13:09)
== END 2018-03-31 15:00 | disposition home health service (06) | DRG 189 ==
LOC: M.ERS 11:22 → M.TBA-ER 12:49 → M.2W 12:49
PROVIDERS: Emergency Medicine Emergency Medical Services; ADMIT Internal Medicine
DX: J96.20 Acute and chronic respiratory failure, unspecified whether with hypoxia or hypercapnia (principal); J44.1 Chronic obstructive pulmonary disease with (acute) exacerbation; J98.11 Atelectasis; I13.0 Hypertensive heart and chronic kidney disease with heart failure and stage 1 through stage 4 chronic kidney disease, or unspecified chronic kidney disease; I50.9 Heart failure, unspecified; E03.9 Hypothyroidism, unspecified; I25.10 Atherosclerotic heart disease of native coronary artery without angina pectoris; E11.51 Type 2 diabetes mellitus with diabetic peripheral angiopathy without gangrene; F17.210 Nicotine dependence, cigarettes, uncomplicated; E11.22 Type 2 diabetes mellitus with diabetic chronic kidney disease; N18.9 Chronic kidney disease, unspecified; Z86.718 Personal history of other venous thrombosis and embolism; I25.2 Old myocardial infarction; Z95.820 Peripheral vascular angioplasty status with implants and grafts; Z88.0 Allergy status to penicillin; Z88.6 Allergy status to analgesic agent; Z91.041 Radiographic dye allergy status; Z82.49 Family history of ischemic heart disease and other diseases of the circulatory system; Z83.3 Family history of diabetes mellitus; Z79.82 Long term (current) use of aspirin; Z79.899 Other long term (current) drug therapy; Z23 Encounter for immunization; E78.5 Hyperlipidemia, unspecified

== ENCOUNTER → 2018-04-25 | Outpatient (CLI) | payer OTHER | LOC: M.RAD 13:44 | DX: Z12.31 Encounter for screening mammogram for malignant neoplasm of breast (principal) ==

== ENCOUNTER 2020-06-21 20:29 | Emergency (ER) | payer OTHER ==
[~2020-06-21] VITALS: Ht 165.1 cm; Wt 61.2 kg
[2020-06-21] MEDS ORDERED: NORCO 5-325 TA1 EAC2 PO (22:41)
[2020-06-21 23:07] VITALS: BP 151/45
== END 2020-06-21 23:08 | disposition home or self-care (01) ==
LOC: M.ERS 20:29
DX: S42.215A Unspecified nondisplaced fracture of surgical neck of left humerus, initial encounter for closed fracture (principal); M25.552 Pain in left hip; M25.522 Pain in left elbow; J44.9 Chronic obstructive pulmonary disease, unspecified; E11.9 Type 2 diabetes mellitus without complications; E03.9 Hypothyroidism, unspecified; I25.10 Atherosclerotic heart disease of native coronary artery without angina pectoris; E11.621 Type 2 diabetes mellitus with foot ulcer; Z86.718 Personal history of other venous thrombosis and embolism; W01.0XXA Fall on same level from slipping, tripping and stumbling without subsequent striking against object, initial encounter; Y93.89 Activity, other specified; Y92.89 Other specified places as the place of occurrence of the external cause; Y99.8 Other external cause status

== ENCOUNTER 2021-08-01 03:09 | Inpatient (IN) | payer MEDICARE ==
[~2021-08-01] VITALS: Ht 157.5 cm; Wt 58.5 kg
--- NOTE | ~2021-08-01 | EMS ---
[facility] [address] [place] [address] EMS Patient Care Report Name: LIANG CASTAÑEDA Room: [address] ADM IN M.R.#: [id number] Admission: 08/01/21 Attend Phys: Sara Baker Discharge: Date of : 56 Report #: [id number] THIS REPORT FOR: //name// Report Transmitted: 08/05/2021 13:40 EMS Care Summary [facility] Incident [phone] @ 08/01/2021 02:07 Incident Location [address] [place] [address] Patient LIANG CASTAÑEDA Female, 61 Years 1960 Patient Address [address] [place] [address] Patient History Pacemaker/AICD, Patient Allergies No known allergies, Patient Medications Metformin, Chief Complaint Unresponsive Disposition Transported No Lights/[place] Dispatch Reason Altered Mental Status Transported To [facility] Narrative Medic 1 was dispatched for an unresponsive green party, family believes it could possibly be diabetic issues. Medic 1 arrived on scene and made pt. contact. Pt. is a 61 y/o female, lying supine on the couch, AOx2 with a GCS of 12. C/C of AMS. Family advised that the pt. had fallen off the couch and was [address] [place] [address] EMS Patient Care Report Name: LIANG CASTAÑEDA Room: [address] IN ..#: [id number] Admission: 08/01/21 Attend Phys: Sara Baker Discharge: Date of : 56 Report #: [id number] unresponsive and believed that her BGL was low. Primary assessment was obtained, pt. opened her eyes for the crew with verbal and then closed them. V/S obtained. Pt.'s skin was cool and clammy, auscultation of the lungs revealed CEBBS in upper and lower lobes. BGL was obtained, 364 mg/dl. 4 Lead ECG was obtained, Sinus tach at a rate of 111 mg/dl. Prior to transferring pt. to the cot, pills were found on the floor next to where the pt. was laying. Pt. presents with agitation and opens her eyes with verbal stimuli. Pills were a over the counter sleeping aid. Family was uncertain if the pt. had ingested any pills. Pt. was transferred to the cot and secured. Pt. was loaded into the ambulance and secured. V/S obtained and monitored throughout the transport. Pupils were examined, constricted bilaterally at 2mm and sluggish to respond. A successful IV line was established, 20GA to right forearm with a flash. A 1000ml bag of saline and a 10gtts administration line was flushed and administered through established IV cannulation. IV flows with no obstructions and is secured, flowing at a TKO rate. Pt. received 200ml throughout the transport. In route, pt. remained agitated and GCS improved. Pt. was able to acknowledge that she had ingested sleeping pills, but was unable to confirm how many were ingested. Receiving facility was contacted and report was given. As report was being given, the pt. presented with a generalized tonic-clonic seizure. Pt. was administered 2mg of Midazolam IVP with NS flush for the seizure activity. Pt. was administered 02 via NRB at 15 lpm. Arrived at receiving facility, pt. was assigned to Bed #1 and report was given to receiving physician and staff. Signatures obtained by receiving nurse for pt. authorization and receiving of pt. Medic 1 returned to service. Initial Vitals @03:01P: 101,R: 16,BP: 210/100,GCS: 8,SpO2: 95,Revised Trauma: 10,SC Suspected: false @02:17P: 111,R: 16,BP: 180/90,GCS: 12,Glucose: 364,SpO2: 95,Revised Trauma: 11, @02:40P: 125,R: 20,BP: 237/110,GCS: 13,SpO2: 95,Revised Trauma: 12,SC Suspected: false @02:51P: 114,R: 20,BP: 217/107,GCS: 14,SpO2: 95,Revised Trauma: 12,SC Suspected: false Impression Altered Mental Status Procedures @02:27 IV Therapy - Normal Saline (.9% NaCl) 200cc (20 ga) Site: Forearm-Right Response: UnchangedSucceeded @03:03 Midazolam - 2 Milligrams (mg) - Intravenous (IV) Response: Unchanged @03:04 Oxygen FlowRate: 15 Device: Non Re-breather Mask (NRB) Response: [place] [address] EMS Patient Care Report Name: LIANG CASTAÑEDA Room: [address] IN M.R.#: [id number] Admission: 08/01/21 Attend Phys: Sara Baker Discharge: Date of : 56 Report #: [id number] Timeline 02:06,Call Received 02:07,Dispatched 02:12,En Route 02:14,On Scene 02:14,At Patient 02:17,BP: 180/90 M,PULSE: 111,RR: 16 R,SPO2: 95 Ox,ETCO2: ,B,PAIN: ,GCS: 12, 02:27,IV Therapy - Normal Saline (.9% NaCl) 200cc 20 ga Site: Forearm-Right,Response: UnchangedSucceeded, 02:40,BP: 237/110 M,PULSE: 125,RR: 20 R,SPO2: 95 Ox,ETCO2: ,BG: ,PAIN: ,GCS: 13, 02:44,Depart Scene 02:51,BP: 217/107 M,PULSE: 114,RR: 20 R,SPO2: 95 Ox,ETCO2: ,BG: ,PAIN: ,GCS: 14, 03:01,BP: 210/100 M,PULSE: 101,RR: 16 R,SPO2: 95 Ox,ETCO2: ,BG: ,PAIN: ,GCS: 8, 03:03,Midazolam - 2 Milligrams (mg) - Intravenous (IV),Response: Unchanged 03:04,At Destination 03:04,Oxygen FlowRate: 15 Device: Non Re-breather Mask (NRB) Response: UnchangedSucceeded, 03:47,Call Closed Disclaimer v1.1 Copyright 2021 [employer] This EMS Care Summary contains data elements from the applicable legal record (which may be displayed differently). It is designed to provide pertinent information for the following purposes: continuity of care, clinical quality, and state data reporting. The complete legal record is available to ED staff and administrators of the receiving hospital in [employer]'s Patient Tracker. All data is provided "as is."
--- NOTE | ~2021-08-01 | EEG ---
[address] [address] EEG STUDY REPORT Name: LIANG CASTAÑEDA Room: [address] IN M.R.#: [id number] Admission: 08/01/21 Attend Phys: Sara Baker Discharge: 08/05/21 Date of : 56 Report #: [id number] THIS REPORT FOR: cc: Agnieszka Bailon Ahmad W. DO Khosla,Wyatt Zimmer MD ~ DATE OF SERVICE: 08/05/2021 This patient is being evaluated for altered mental status. EEG was done by placing the electrode by standard 10-20 system of electrode placement. Both referential and sequential montages were used for recording. Background activity appeared to be about 9 Hz and 30 microvolt. The patient went to sleep and that is associated with bilateral slowing and vertex sharp waves. The slowing was pretty pronounced. Photic stimulation is unremarkable. IMPRESSION: This electroencephalogram is intermixed with theta range slowing on both sides. That is a nonspecific abnormality, which can occur with encephalopathy, effect of psychotropic medication, dementia, etc. Clinical correlation is recommended. By: [id number] May MD /nt
--- NOTE | ~2021-08-01 | CON ---
[address] [address] CONSULTATION Name: LIANG CASTAÑEDA Room: [place] [address] ADM IN M.R.#: [id number] Admission: 08/01/21 Attend Phys: Sara Baker Discharge: Date of : 56 Report #: [id number] THIS REPORT FOR: cc: Agnieszka Bailon Ahmad W. DO Khan, Abid R. MD ~ DATE OF CONSULTATION: 08/01/2021 NEPHROLOGY CONSULTATION CONSULTING PHYSICIAN: Dr. Garcia. REASON FOR CONSULTATION: Acute kidney injury. HISTORY OF PRESENT ILLNESS: A 61-year-old female who was brought in for altered mental status. She had a fall and reportedly had some seizure-like activity. She is awake and alert. On my examination, she has no complaints. Does not recall having any chronic kidney disease, does not use any NSAIDs. Denies any nausea, vomiting or diarrhea. Creatinine on admission was 4.6. REVIEW OF SYSTEMS: Constitutional, psych, heme, eyes, ENT, respiratory, cardiac, GI, , endocrine, all negative except as documented above. PAST MEDICAL HISTORY: Diabetes, hypothyroidism, coronary artery disease, peripheral vascular disease, history of diabetic foot ulcer, history of stenting in the lower extremities, history of DVT, COPD. SOCIAL HISTORY: Positive for tobacco. FAMILY HISTORY: Not pertinent in this 61-year-old female. CURRENT MEDICATIONS: Reviewed. PHYSICAL EXAMINATION: VITAL SIGNS: Blood pressure is 184/75, pulse 80, respirations 13, temperature 36.7. GENERAL: No acute distress. EYES: Open. EARS: Externally normal. NECK: Supple. CARDIOVASCULAR: Regular rate. LUNGS: No crackles. ABDOMEN: Soft. MUSCULOSKELETAL: Nontender. PSYCHIATRIC: Awake, alert. [address] [address] CONSULTATION Name: MADDYLIANG ANN Room: [address] IN [facility]#: [id number] Admission: 08/01/21 Attend Phys: Sara Baker Discharge: Date of : 56 Report #: [id number] LABORATORY DATA: White cell count 7.1, hemoglobin 11.6, platelets 148. Sodium 135, potassium 4.4, chloride 104, bicarbonate 15, BUN 52, creatinine 4.6, glucose 454, calcium 8, magnesium 1.3, albumin 3.2. ASSESSMENT: 1. Acute kidney injury, perhaps a component of volume depletion with admission creatinine of 4.6. In 2018, creatinine of 1.8. In 2017, she had a creatinine up to 4.9. CK was 203. UA noted. Urine drug screen was negative. 2. Peripheral vascular disease with history of lower extremity stenting. 3. Diabetes. 4. Coronary artery disease. 5. Hypothyroidism. 6. Chronic obstructive pulmonary disease. PLAN: 1. Blood sugar control per primary service. 2. Metabolic acidosis. We will start IV fluids with bicarbonate. 3. Hypomagnesemia. Magnesium was given. 4. We will check a CK and magnesium again in the morning. We will discontinue the oral sodium bicarbonate for the time being. Check renal ultrasound. Check labs again in the a.m. We will follow along with you. Thank you for requesting my opinion in the care and management of this patient. By: [id number] Enrique Klein MD /nt
[~2021-08-01 03:09] MED LIST changes: +NORCO 5-325 TA1 EAC2 PO
[2021-08-01 03:13] VITALS: BP 187/68
[2021-08-01 03:58] LABS: HEMATOCRIT 37.5 % (37.0-47.0); HEMOGLOBIN 11.6 gm/dL (12.0-15.0); MCH 33.2 pg (26.0-34.0); MCHC 31.1 g/dL (28.0-37.0); MCV 106.8 fL (80.0-100.0); MPV 8.3 fl. (7.2-11.1); NUCLEATED RBCS 0 /100WBC; PLATELET COUNT* 148 thou/uL (150-400); RBC 3.51 mil/uL (4.20-5.00); RDW-CV 16.1 % (10.5-14.5); WBC 7.1 thou/uL (4.0-11.0)
[2021-08-01 04:03] LABS: ABSOLUTE EOSINOPHILS 0.2 thou/uL (0.0-0.7); ABSOLUTE LYMPHOCYTES 1.1 thou/uL (0.8-5.3); ABSOLUTE MONOCYTES 0.3 thou/uL (0.0-1.2); ABSOLUTE NEUTROPHILS 5.4 thou/uL (1.6-8.1); BASOPHILS 0.6 %; EOSINOPHILS 2.3 %; LYMPHOCYTES 15.7 %; MONOCYTES 4.7 %; POLYS 76.7 %
[2021-08-01 04:11] LABS: CREATININE 4.6 mg/dL (0.6-1.3); POTASSIUM 4.4 mmol/L (3.5-5.1)
[2021-08-01 04:12] LABS: BE -9.9 mmol/L (-2 to +3); PCO2 34.2 mmHg (35.0-45.0); PO2 71.4 mmHg (75.0-100.0)
[2021-08-01 04:16] LABS: pH 7.282 (7.340-7.450)
[2021-08-01 04:28] LABS: ALBUMIN 3.2 g/dL (3.4-5.0); MAGNESIUM 1.3 mg/dL (1.8-2.4); TOTAL BILIRUBIN 0.3 mg/dL (<0.1-1.0); TOTAL PROTEIN 6.5 g/dL (6.4-8.2)
[2021-08-01 09:00] VITALS: BP 193/84
[2021-08-01 09:19] LABS: AMP/METHAMP Negative (Negative); BARBITURATES Negative (Negative); BENZODIAZEPINES POSITIVE (Negative); COCAINE Negative (Negative); METHADONE Negative (Negative); OPIATES Negative (Negative); PCP Negative (Negative); THC Negative (Negative)
[2021-08-01 09:42] LABS: URINE BILIRUBIN NEGATIVE (Negative); URINE BLOOD TRACE (Negative); URINE CLARITY CLEAR; URINE COLOR YELLOW; URINE GLUCOSE-RANDOM 3+ (Negative); URINE KETONES NEGATIVE (Negative); URINE LEUKOCYTES-REFLEX NEGATIVE (Negative); URINE NITRITE-REFLEX NEGATIVE (Negative); URINE PROTEIN 1+ (Negative); URINE UROBILINOGEN 0.2 E.U./dl (0.2-1.0)
[2021-08-01 10:12] LABS: URINE RBC 0-2 Rare /HPF (0-2)
[2021-08-01 10:13] LABS: BACTERIA-REFLEX None Seen /HPF (None Seen); CASTS None Seen /LPF (None Seen); CRYSTALS None Seen /LPF (None Seen); URINE WBC-REFLEX None Seen /HPF (0-5)
[2021-08-01 13:00] VITALS: BP 182/81
[2021-08-01] MEDS ORDERED: CILOSTAZOL 100100 MG PO (17:04)
[2021-08-01] MEDS ORDERED: FUROSEMIDE 40 M40 MG PO (17:04)
[2021-08-01] MEDS ORDERED: GABAPENTIN800 M1 PO (17:05)
[2021-08-01] MEDS ORDERED: GLIPIZIDE 10 MG10 MG PO (17:05)
[2021-08-01] MEDS ORDERED: LISINOPRIL5 MG PO (17:06)
[2021-08-01] MEDS ORDERED: METFORMIN HCL1000 MG PO ×2 (17:08→17:09)
[2021-08-01] MEDS ORDERED: OMEPRAZOLE40 MG PO (17:10)
[2021-08-01] MEDS ORDERED: SERTRALINE HCL100 MG PO (17:11)
[2021-08-01] MEDS ORDERED: SIMVASTATIN40 MG PO (17:11)
[2021-08-01] MEDS ORDERED: TRAZODONE HCL100 MG PO (17:12)
[2021-08-01] MEDS ORDERED: VITAMIN D21250 MCG PO (17:14)
[2021-08-01 20:24] VITALS: BP 200/86
[2021-08-01 20:30] VITALS: BP 178/71
[2021-08-02] VITALS: BP 169/67; BP 193/92
[2021-08-02 03:45] LABS: ABSOLUTE BASOPHILS 0.1 thou/uL (0.0-0.2); ABSOLUTE EOSINOPHILS 0.1 thou/uL (0.0-0.7); ABSOLUTE LYMPHOCYTES 1.6 thou/uL (0.8-5.3); ABSOLUTE MONOCYTES 0.4 thou/uL (0.0-1.2); EOSINOPHILS 2.1 %; HEMATOCRIT 34.8 % (37.0-47.0); HEMOGLOBIN 11.6 gm/dL (12.0-15.0); LYMPHOCYTES 25.3 %; MCH 32.8 pg (26.0-34.0); MCHC 33.4 g/dL (28.0-37.0); MONOCYTES 6.4 %; MPV 8.8 fl. (7.2-11.1); NUCLEATED RBCS 0 /100WBC; PLATELET COUNT* 162 thou/uL (150-400); POLYS 65.2 %; RBC 3.55 mil/uL (4.20-5.00); RDW-CV 14.9 % (10.5-14.5); WBC 6.1 thou/uL (4.0-11.0)
[2021-08-02 03:58] LABS: CALCIUM 7.6 mg/dL (8.5-10.1); CREATININE 3.8 mg/dL (0.6-1.3); POTASSIUM 3.9 mmol/L (3.5-5.1)
[2021-08-02 04:04] LABS: MCV 98.1 fL (80.0-100.0)
[2021-08-02 04:08] LABS: ALBUMIN 2.5 g/dL (3.4-5.0); CALCIUM 7.3 mg/dL (8.5-10.1); CREATININE 3.8 mg/dL (0.6-1.3); MAGNESIUM 1.8 mg/dL (1.8-2.4); PHOSPHORUS* 3.2 mg/dL (2.5-4.9)
[2021-08-02 04:20] VITALS: BP 175/86
[2021-08-02 11:29] VITALS: BP 185/82
[2021-08-02 12:34] LABS: CHOLESTEROL 361 mg/dL (<200); HDL CHOLESTEROL 46 mg/dL (>40); TC:HDL 7.8 Ratio (Not establshd); TRIGLYCERIDE 425 mg/dL (<150); VLDL 85 mg/dL (<40)
[2021-08-02 12:35] LABS: SERUM ASSESSMENT Clear
[2021-08-02 16:00] VITALS: BP 157/51
[2021-08-02 20:00] VITALS: BP 156/80
[2021-08-03] VITALS (7 sets, daily range): BP systolic 157–200; BP diastolic 55–84
[2021-08-03 04:15] LABS: ABSOLUTE EOSINOPHILS 0.2 thou/uL (0.0-0.7); ABSOLUTE LYMPHOCYTES 1.4 thou/uL (0.8-5.3); ABSOLUTE MONOCYTES 0.4 thou/uL (0.0-1.2); ABSOLUTE NEUTROPHILS 3.2 thou/uL (1.6-8.1); BASOPHILS 0.8 %; EOSINOPHILS 3.9 %; HEMATOCRIT 31.5 % (37.0-47.0); HEMOGLOBIN 10.7 gm/dL (12.0-15.0); LYMPHOCYTES 26.5 %; MCH 33.4 pg (26.0-34.0); MCHC 33.9 g/dL (28.0-37.0); MCV 98.5 fL (80.0-100.0); MONOCYTES 7.4 %; MPV 8.4 fl. (7.2-11.1); NUCLEATED RBCS 0 /100WBC; PLATELET COUNT* 156 thou/uL (150-400); POLYS 61.4 %; RDW-CV 15.2 % (10.5-14.5); WBC 5.1 thou/uL (4.0-11.0)
[2021-08-03 04:39] LABS: ALBUMIN 2.5 g/dL (3.4-5.0); CALCIUM 7.4 mg/dL (8.5-10.1); CREATININE 3.5 mg/dL (0.6-1.3); POTASSIUM 3.9 mmol/L (3.5-5.1); TOTAL BILIRUBIN 0.4 mg/dL (<0.1-1.0); TOTAL PROTEIN 5.2 g/dL (6.4-8.2)
--- NOTE | 2021-08-03 11:10 | EKG ---
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 : [id number] Requested By: Julissa Camarillo Order Number: [id number] MD: Marvin Swartz Measurements Intervals [place] Rate: 102 P: 83 TN: 178 QRS: 66 QRSD: 79 T: 242 QT: 369 QTc: 481 Interpretive Statements Sinus tachycardia Low voltage with right axis deviation Anteroseptal infarct, old cannot be excluded Nonspecific T abnormalities, lateral leads Baseline wander in lead(s) V1 Compared to ECG 03/29/2018 11:32:47 Right-axis deviation now present T-wave abnormality now present Sinus rate has increased Myocardial infarct finding still present Electronically Signed On 08-03-2021 11:09:56 [employer]GRESSIONAL DISTRICT AIDE by Marvin Swartz [email or web address] <ELECTRONICALLY SIGNED> By: Marvin Swartz MD, [facility] 08/03/21 1109 0316 Marvin Swartz MD, [facility] /EPI
--- NOTE | 2021-08-03 14:07 | 2DMMODE ---
[place] [address] 2 D/M-MODE ECHOCARDIOGRAM Name: LIANG CASTAÑEDA CARLOS Room: [address] IN [facility]#: [id number] Admission: 08/01/21 Attend Phys: Neil Garcia Discharge: Date of : 56 Date of Service: 08/03/21 1407 Report #: [id number] THIS REPORT FOR: cc: Agnieszka Bailon,Agnieszka Vasquez,Marvin Pan MD [facility] ~ APPROVED REPORT Study performed: 08/03/2021 11:03:38 EXAM: Comprehensive 2D, Doppler, and color-flow Echocardiogram Patient Location: In-Patient Room #: [facility] Status: routine BSA: 1.59 HR: 70 bpm BP: 157/73 mmHg Rhythm: NSR Other Information Study Quality: Good Indications CVA/TIA Echo Enhancing Agent Indication: Rule out Shunt Agent(s) / Amount(s) Used: Agitated Saline 10 cc 2D Dimensions IVSd: 12.21 (7-11mm) LVOT Diam: 18.99 (18-24mm) LVDd: 43.23 mm PWd: 10.58 (7-11mm) Ascending Ao: 27.76 (22-36mm) LVDs: 26.06 (25-40mm) Aortic Root: 27.55 mm Volumes Left Atrial Volume (Systole) LA ESV Index: 15.70 mL/m2 Aortic Valve AoV Peak Saran.: 1.41 m/s AO Peak Gr.: 7.90 mmHg LVOT Max P.99 mmHg AO Mean Gr.: 4.09 mmHg LVOT Mean P[place]53 [place] [address] 2 D/M-MODE ECHOCARDIOGRAM Name: LIANG CASTAÑEDA Room: [address] IN .R.#: [id number] Admission: 08/01/21 Attend Phys: Neil Garcia Discharge: Date of : 56 Date of Service: 08/03/21 1407 Report #: [id number] LVOT Max V: 0.86 m/s AO V2 VTI: 29.86 cm LVOT Mean V: 0.57 m/s SALLY (VTI): 1.74 cm2 LVOT V1 VTI: 18.34 cm Mitral Valve E/A Ratio: 0.69 MV Decel. Time: 368.81 ms MV E Max Saran.: 0.67 m/s MV PHT: 106.95 ms MVA (PHT): 2.06 cm2 TDI E/Lateral E': 13.40 E/Medial E': 11.17 Medial E' Saran.: 0.06 m/s Lateral E' Saran.: 0.05 m/s Pulmonary Valve PV Peak Saran.: 0.98 m/s PV Peak Gr.: 3.82 mmHg Tricuspid Valve RAP Estimate: 5.00 mmHg TR Peak Gr.: 31.34 mmHg RVSP: 36.00 mmHg PA Pressure: 36.00 mmHg Left Ventricle The left ventricle is normal size. There is normal LV segmental wall motion. Moderate concentric left ventricular hypertrophy. Left ventricular systolic function is normal. The left ventricular ejection fraction is within the normal range. LVEF is 60-65%. Grade I - abnormal relaxation pattern. Right Ventricle The right ventricle is normal size. The right ventricular systolic function is normal. Pacemaker lead is present in the right ventricle. Atria The left atrium size is normal. The interatrial septum is intact with no evidence for an atrial septal defect. The right atrium size is normal. Aortic Valve Mild aortic valve sclerosis. Trace aortic regurgitation. No hemodynamically significant valvular aortic stenosis. Mitral Valve The mitral valve is normal in structure. There [place] [address] 2 D/M-MODE ECHOCARDIOGRAM Name: LIANG CASTAÑEDA Room: [address] IN M.R.#: [id number] Admission: 08/01/21 Attend Phys: Neil Garcia Discharge: Date of : 56 Date of Service: 08/03/21 1407 Report #: [id number] regurgitation noted. No evidence of mitral valve stenosis. Tricuspid Valve The tricuspid valve is normal in structure. Mild tricuspid regurgitation. Mild pulmonary hypertension. Pulmonic Valve The pulmonary valve is normal in structure. There is no pulmonic valvular regurgitation. Great Vessels The aortic root is normal in size. IVC is normal in size and collapses >50% with inspiration. Pericardium There is no pericardial effusion. <Conclusion> The left ventricle is normal size. Moderate concentric left ventricular hypertrophy. Left ventricular systolic function is normal. The left ventricular ejection fraction is within the normal range. LVEF is 60-65%. Grade I - abnormal relaxation pattern. The right ventricle is normal size. The left atrium size is normal. Mild aortic valve sclerosis. Trace aortic regurgitation. No hemodynamically significant valvular aortic stenosis. The mitral valve is normal in structure. The tricuspid valve is normal in structure. Mild tricuspid regurgitation. Mild pulmonary hypertension. IVC is normal in size and collapses >50% with inspiration. There is no pericardial effusion. There is normal LV segmental wall motion. The interatrial septum is intact with no evidence for an atrial septal defect. Pacemaker lead is present in the right ventricle. <ELECTRONICALLY SIGNED> By: Marvin Swartz MD, FACC 08/03/21 1407 1407 140 Marvin Swartz MD, FACC /INF
[2021-08-04] VITALS: BP 175/66
[2021-08-04 04:20] VITALS: BP 179/76
[2021-08-04 05:04] LABS: ABSOLUTE EOSINOPHILS 0.2 thou/uL (0.0-0.7); ABSOLUTE LYMPHOCYTES 1.4 thou/uL (0.8-5.3); ABSOLUTE MONOCYTES 0.4 thou/uL (0.0-1.2); ABSOLUTE NEUTROPHILS 3.9 thou/uL (1.6-8.1); BASOPHILS 0.5 %; EOSINOPHILS 3.6 %; HEMATOCRIT 30.9 % (37.0-47.0); HEMOGLOBIN 10.2 gm/dL (12.0-15.0); LYMPHOCYTES 23.9 %; MCH 32.7 pg (26.0-34.0); MCHC 33.1 g/dL (28.0-37.0); MCV 98.7 fL (80.0-100.0); MONOCYTES 6.3 %; MPV 8.7 fl. (7.2-11.1); NUCLEATED RBCS 0 /100WBC; PLATELET COUNT* 179 thou/uL (150-400); POLYS 65.7 %; RBC 3.13 mil/uL (4.20-5.00); RDW-CV 15.3 % (10.5-14.5); WBC 5.9 thou/uL (4.0-11.0)
[2021-08-04 05:57] LABS: ALBUMIN 2.8 g/dL (3.4-5.0); CALCIUM 7.5 mg/dL (8.5-10.1); CREATININE 3.6 mg/dL (0.6-1.3); MAGNESIUM 1.6 mg/dL (1.8-2.4); PHOSPHORUS* 3.9 mg/dL (2.5-4.9)
[2021-08-04 07:08] LABS: GLYCOHEMOGLOBIN (HGB A1C) 11.1 % (4.8-5.6)
[2021-08-04 08:00] VITALS: BP 126/75
[2021-08-04 13:06] VITALS: BP 196/58
[2021-08-04 18:28] VITALS: BP 191/81
[2021-08-04 20:10] VITALS: BP 186/63
[2021-08-05] VITALS (7 sets, daily range): BP systolic 124–187; BP diastolic 58–77
[2021-08-05 05:28] LABS: ABSOLUTE BASOPHILS 0.1 thou/uL (0.0-0.2); ABSOLUTE EOSINOPHILS 0.2 thou/uL (0.0-0.7); ABSOLUTE LYMPHOCYTES 1.5 thou/uL (0.8-5.3); ABSOLUTE MONOCYTES 0.4 thou/uL (0.0-1.2); ABSOLUTE NEUTROPHILS 3.2 thou/uL (1.6-8.1); EOSINOPHILS 3.4 %; HEMATOCRIT 30.2 % (37.0-47.0); HEMOGLOBIN 10.1 gm/dL (12.0-15.0); LYMPHOCYTES 28.4 %; MCH 32.6 pg (26.0-34.0); MCHC 33.3 g/dL (28.0-37.0); MCV 97.8 fL (80.0-100.0); MONOCYTES 7.2 %; MPV 8.5 fl. (7.2-11.1); NUCLEATED RBCS 0 /100WBC; PLATELET COUNT* 174 thou/uL (150-400); RBC 3.09 mil/uL (4.20-5.00); RDW-CV 14.9 % (10.5-14.5); WBC 5.4 thou/uL (4.0-11.0)
[2021-08-05 06:03] LABS: ALBUMIN 2.6 g/dL (3.4-5.0); CALCIUM 7.8 mg/dL (8.5-10.1); CREATININE 3.2 mg/dL (0.6-1.3); POTASSIUM 3.9 mmol/L (3.5-5.1); TOTAL BILIRUBIN 0.3 mg/dL (<0.1-1.0); TOTAL PROTEIN 5.4 g/dL (6.4-8.2)
[2021-08-05] MEDS ORDERED: BAYER CHEWABLE81 MG PO (13:29)
[2021-08-05] MEDS ORDERED: COREG6.25 MG PO (13:29)
[2021-08-05] MEDS ORDERED: PLAVIX 75 MG TA75 M1 PO (13:29)
[2021-08-05] MEDS ORDERED: HUMALOG100 UNIT/1 SUBQ (13:33)
[2021-08-06 21:16] LABS: ANA INTERPRETATION Negative (())
== END 2021-08-05 16:00 | disposition home health service (06) | DRG 64 ==
LOC: M.ERS 03:09 → M.2W 05:00 → M.TBA-ER 05:00 → M.2W 20:34
PROVIDERS: Internal Medicine; Personal Emergency Response Attendant; Psychiatry & Neurology Neurology; Psychiatry & Neurology Neuromuscular Medicine; ADMIT Internal Medicine; ATTEND Internal Medicine
DX: I63.9 Cerebral infarction, unspecified (principal); N17.0 Acute kidney failure with tubular necrosis; G93.41 Metabolic encephalopathy; J44.9 Chronic obstructive pulmonary disease, unspecified; I73.9 Peripheral vascular disease, unspecified; E03.9 Hypothyroidism, unspecified; I25.10 Atherosclerotic heart disease of native coronary artery without angina pectoris; E86.9 Volume depletion, unspecified; E11.22 Type 2 diabetes mellitus with diabetic chronic kidney disease; I65.29 Occlusion and stenosis of unspecified carotid artery; F17.210 Nicotine dependence, cigarettes, uncomplicated; E83.42 Hypomagnesemia; N18.32 Chronic kidney disease, stage 3b; Z71.6 Tobacco abuse counseling; Z79.899 Other long term (current) drug therapy; I25.2 Old myocardial infarction; Z95.820 Peripheral vascular angioplasty status with implants and grafts; Z20.822 Contact with and (suspected) exposure to COVID-19; Z88.0 Allergy status to penicillin; Z88.6 Allergy status to analgesic agent; Z91.041 Radiographic dye allergy status; Z83.3 Family history of diabetes mellitus; Z82.49 Family history of ischemic heart disease and other diseases of the circulatory system